=== PATIENT | female | born 1955 | race Caucasian/White ===

== ENCOUNTER 2021-10-11 00:46 | Observation (INO) | payer MEDICARE ==
[~2021-10-11] VITALS: Ht 167.6 cm; Wt 5.7 kg
[2021-10-11 01:03] LABS: BASOPHILS % (AUTO) 0.6 % (0.0-5.0); EOSINOPHILS % (AUTO) 2.2 % (0.0-8.0); HEMATOCRIT 45.6 % (36-48); LYMPHOCYTES % (AUTO) 25.7 % (21.0-51.0); MEAN CORPUSCULAR HGB CONC 33.3 g/dL (32.0-36.0); MEAN CORPUSCULAR VOLUME 86.9 fL (79-99); MONOCYTES % (AUTO) 8.9 % (3.0-13.0); PLATELET COUNT (AUTO) 317 K/uL (130-400); RED BLOOD CELL COUNT(AUTO) 5.25 MIL/uL (4.00-5.50); RED CELL DISTRIBUTION WIDTH 13.5 % (11.0-15.5); WHITE BLOOD COUNT (AUTO) 11.9 K/uL (4.8-10.8)
[2021-10-11 01:12] LABS: POTASSIUM 3.8 mmol/L (3.5-5.1)
[2021-10-11 01:22] LABS: ALBUMIN 3.6 g/dL (3.5-5.0); BILIRUBIN,TOTAL 0.3 mg/dL (0.2-1.0); TOTAL PROTEIN, SERUM 7.7 g/dL (6.0-8.3)
[2021-10-11] MEDS ORDERED: ASPIRIN 325MG TAB PO ONE (02:00)
[2021-10-11] MEDS ORDERED: FAMOTIDINE 20MG VIAL IV ONE (02:00)
[2021-10-11 02:30] LABS: PROTHROMBIN TIME 10.9 SEC (9.6-11.6)
[2021-10-11] MEDS ORDERED: IOHEXOL 350 MG/ML 100ML INFUS..BTL IV ONE (02:39)
[2021-10-11] MEDS ORDERED: NITROGLYCERIN 0.4 MG SL TAB SL PRN (03:00)
[2021-10-11] MEDS ORDERED: ACETAMINOPHEN 325 MG TAB PO PRN (03:00)
[2021-10-11 08:00] VITALS: BP 143/85
[2021-10-11] MEDS ORDERED: FAMOTIDINE 20MG TAB PO SCH (09:00)
[2021-10-11] MEDS ORDERED: ASPIRIN 81MG CHEW TAB PO SCH (09:00)
[2021-10-11] MEDS ORDERED: ENOXAPARIN SODIUM 40 MG/0.4 ML SYRINGE SQ SCH (09:00)
[2021-10-11] MEDS ORDERED: PANT40TA54 PO (10:43)
== END 2021-10-11 16:30 | disposition home or self-care (01) ==
LOC: EDH 00:46 → EDHIP 02:55 → 3AH 05:27
PROVIDERS: ADMIT Internal Medicine; ATTEND Internal Medicine
DX: R07.89 Other chest pain (principal); M54.9 Dorsalgia, unspecified; E89.0 Postprocedural hypothyroidism; G25.0 Essential tremor; J98.11 Atelectasis
CPT/HCPCS: 36415; 71045; 71275; 80053; 82550; 83690; 83874; 84484 ×2; 85025; 85378; 85610; 93005; 96372; 99285; G0378 ×13; Q9967; J1650

== ENCOUNTER 2025-10-25 14:48 | Emergency (ER) | payer MEDICARE ==
[~2025-10-25] VITALS: Ht 167.6 cm; Wt 86.2 kg
[~2025-10-25 14:48] MED LIST: LACT10SO85 PO; PANT40TA54 PO
--- NOTE | 2025-10-25 15:17 | ERN ---
ED Note History of Present Illness Stated Complaint: ANKLE INJURY Chief Complaint: Ankle Problem Time Seen by MD: 14:55 Dictation: PATIENT IS A 70-YEAR-OLD FEMALE HERE WITH HER WITH COMPLAINTS OF LEFT ANKLE AND FOOT PAIN ONSET 11 O'CLOCK THIS MORNING. SHE STATES SHE WAS IN THE SHOWER SHE SLIPPED AND HER FOOT WENT BACKWARDS AND TWISTED. SHE SAID SHE FELT A POP IN THE ANKLE. HIS UNABLE TO AMBULATE SINCE. NEUROVASCULAR CMS INTACT TO THE LEFT FOOT. SHE ALSO STATES SHE HAS TAKEN NOTHING PRIOR TO ARRIVAL FOR PAIN STATES HER PAIN IS 8/10 SECOND SHE IS COMPLAINING OF LEFT 5TH TOE PAIN AFTER DROPPING AN OBJECT ON IT LAST WEEK. SHE DID NOT GET TO SEE HER PRIMARY CARE DOCTOR. Allergies: Coded Allergies: azithromycin (Unverified Allergy, Unknown, 01/07/19) levofloxacin (Unverified Allergy, Unknown, 01/07/19) nitrofurantoin (Unverified Allergy, Unknown, 02/24/25) propranolol (Unverified Allergy, Unknown, 02/24/25) Home Meds Active Scripts Lactulose (Lactulose) 10 Gram/15 Ml Solution, 30 ML PO BID for constipation, #500 ML 0 Refills Prov:KEHINDE ESPINOZA MD 02/24/25 Pantoprazole Sodium (Pantoprazole Sodium) 40 Mg Tablet.dr, 40 MG PO DAILY for 60 Days, #60 TAB 0 Refills Prov:RIVERA STREET Jr., MD 10/11/21 Past Medical History Past Medical History: No Pertinent History, Kidney Stone Surgical History: Hysterectomy Surgical History Other: Thyroid nodule removed Family History: Negative Social History: Negative, Lives with family History: Not Applicable RN Note Reviewed/Agreed w/PFSH: Yes Review of System Dictation CONSTITUTIONAL: NEGATIVE EXCEPT FOR HPI HEAD/FACE: NEGATIVE EXCEPT FOR HPI EENT: NEGATIVE EXCEPT FOR HPI RESPIRATORY: NEGATIVE EXCEPT FOR HPI GASTROINTESTINAL/ABDOMINAL: NEGATIVE EXCEPT FOR HPI GENITOURINARY: NEGATIVE EXCEPT FOR HPI MUSCULOSKELETAL: NEGATIVE EXCEPT FOR HPI LEFT ANKLE/5TH TOE PAIN INTEGUMENTARY: NEGATIVE EXCEPT FOR HPI NEUROLOGICAL/PSYCH: NEGATIVE EXCEPT FOR HPI HEMATOLOGIC/LYMPHATIC: NEGATIVE EXCEPT FOR HPI ALL SYSTEMS NEGATIVE, EXCEPT NOTED ABOVE. 13 POINT REVIEW OF SYSTEMS ASSESSED AND ALL NEGATIVE EXCEPT FOR ABOVE. Initial Vital Sign VS Vital Signs Date Time Temp Pulse Resp B/P (MAP) Pulse Ox O2 Delivery O2 Flow Rate FiO2 10/25/25 14:49 97.9 93 16 122/85 98 Room Air 10/25/25 16:17 0 21 Physical Exam Dictation VITAL SIGNS REVIEWED GENERAL APPEARANCE: ALERT, ORIENTED X 3, MODERATE ACUTE DISTRESS, WELL DEVELOPED, NOURISHED. HEAD AND FACE: NON-TRAUMATIC. EYES: PERRL, PINK CONJUNCTIVAS, EYELID NO TRAUMA, ANTERIOR CHAMBER WITH ARCUS SENILIS. EARS: PINNAS INTACT AND NO SIGNS OF TRAUMA OR ERYTHEMA EAR CANALS CLEAR AND NO DISCHARGE TM NO ERYTHEMA NOSE: NO DISCHARGE, NO BLEEDING. OROPHARYNX: MOUTH NORMAL, TONGUE PINK, PHARYNX CLEAR,NO ERYTHEMA, TONSILS NO EXUDATES, NO ABSCESSES NOTED, MUCOUS MEMBRANE MOIST NECK: SUPPLE, NON-TENDER, NO THYROMEGALY, NO MASSES, NO JVD, NO BRUITS BREAST:DEFERRED CHEST:NO TENDERNESS, NO CREPITUS, NO PARADOXICAL MOVEMENT, NO RETRACTIONS LUNGS:CLEAR, WELL-VENTILATED, SYMMETRIC, NO RALES, NO WHEEZING, NO RHONCHI, NO STRIDOR, GOOD BREATH SOUNDS BILATERALLY HEART: REGULAR RATE, REGULAR RHYTHM, NO MURMUR, NO GALLOPS VASCULAR: NO PERIPHERAL EDEMA, ABDOMEN: SOFT, POSITIVE BOWEL SOUNDS, NONDISTENDED, NO GUARDING, NONTENDER, NO REBOUND, NO MASSES NO HEPATOMEGALY, NO SPLENOMEGALY, NO GRIMM'S SIGN, NO HERNIAS. RECTAL: DEFERRED GENITAL: DEFERRED NEUROLOGICAL: NORMAL SPEECH, MOTOR FUNCTION INTACT, SENSORY FUNCTION INTACT MUSCULOSKELETAL: NECK NONTENDER, FULL RANGE OF MOTION, BACK NONTENDER, FULL RANGE OF MOTION, EXTREMITIES: LEFT BIMALLEOLAR TENDERNESS SWELLING. NO ECCHYMOSIS DISTAL NEUROVASCULAR CMS INTACT. PAIN TENDERNESS TO THE BASE OF THE LEFT 5TH TOE. SKIN: COLOR PINK, DRY, NO TURGOR, NO RASH, NO LACERATIONS, NO ABRASIONS, NO CONTUSIONS. LYMPHATIC: DEFERRED Results (Laboratory/Radiology) Laboratory/Radiology CR left ankle, 3 View. CLINICAL HISTORY: DIFFUSE LEFT MALLEOLAR PAIN SWELLING AFTER TWISTING ANKLE THIS MORE COMPARISON: None provided. FINDINGS: BONES: Hairline distal fibular fracture is noted JOINTS: The joint spaces appear abnormal with widening of the mortise anteriorly. No dislocation. No radiographic evidence of a joint effusion. SOFT TISSUES: The soft tissues are swollen laterally IMPRESSION: Fracture of the distal fibula /[employer]: Foot exam 3 views. History: patient complains of foot pain Comparison :No prior. Findings: Anatomic alignment is maintained. There is no acute fracture or dislocation. The soft tissues are unremarkable. There are no erosive changes seen. A bony protuberance consistent with a calcaneal spur is noted along the inferior calcaneal surface. The bones of the hindfoot are intact. The midfoot is intact. The forefoot structures are normal. Impression: 1.Calcaneal spur. Consider MRI of the foot to exclude plantar fasciitis. 2. No acute bony changes of the foot is seen. /[place] Labs Reviewed?: Yes ED Course ED Course Orders Procedure Category Date Status Time Ankle Comp 3vws Lt RAD 10/25/25 Resulted 15:12 Foot Comp 3+Vws Lt RAD 10/25/25 Resulted 15:12 Acetaminophen With PHA 10/25/25 Complete Codeine (Tylenol-Code 15:30 Current Medications Medications (Trade) Dose Ordered Sig/Abbie Route PRN Reason Start Time Stop Time Status Last Admin Dose Admin Acetaminophen/ Codeine Phosphate (TYLenol-coDEINE TAB) 2 tab ONCE ONCE PO 10/25/25 15:30 10/25/25 15:31 DC Vital Signs Date Time Temp Pulse Resp B/P (MAP) Pulse Ox O2 Delivery O2 Flow Rate FiO2 10/25/25 16:17 97.9 93 16 122/85 98 Room Air* 0 21 10/25/25 14:49 97.9 93 16 122/85 98 Room Air 1700/PATIENT HAS A DISTAL LEFT FIBULA FRACTURE. POSTERIOR ANKLE SPLINT PLACED BY [facility] WITH NEUROVASCULAR CMS INTACT POST PLACEMENT Medical Decision Making MDM MEDICAL DECISION-MAKING BASED ON HPI AND X-RAYS OF LEFT FOOT AND LEFT ANKLE. LEFT FOOT X-RAY NEGATIVE LEFT ANKLE DEMONSTRATES A DISTAL LEFT FIBULAR FRACTURE NONDISPLACED PATIENT WAS SPLINTED WITH CRUTCHES PROVIDED PAIN WE WILL BE MANAGED WITH TYLENOL WITH CODEINE REFERRED TO DR. RIVERA HARRISON FOR FOLLOW UP OUTPATIENT DX & DISP Disposition: Discharge Departure Impression: Primary Impression: Fracture of distal end of left fibula Additional Impressions: Contusion of left foot, initial encounter, Fall Condition: Stable Assign Patient to: Follow-up with primary care provider in 1 to 2 days. Take medications as directed here in the emergency room. Okay to continue home medications unless otherwise discussed during your visit in the emergency room today. Return to your nearest emergency room if symptoms worsen or if there is no improvement. Call 911 if you need immediate assistance. Take Tylenol or Motrin [id number] as needed and if no contraindications are present. Increase oral hydration. A wound culture or urine culture was ordered here in the emergency room department please follow-up with primary care provider and advise them to get repeat ports from our facility. If you had any Demetris wrap/splints that were applied here, please do not remove them until you see your primary care or specialty. Splint/crutches/no weight-bearing until cleared with the orthopedic surgery, call for an appointment. Cool compresses to pain three to 4 times a day. Keep left leg elevated as much as possible Take Tylenol with codeine for severe pain Scripts Acetaminophen with Codeine (Acetaminophen-Cod #3 Tablet) 300 Mg-30 Mg Tablet 1 TAB PO Q4H PRN for MODERATE TO SEVERE PAIN, #15 TAB 0 Refills Prov: RICHARD CALABRESE 10/25/25 Referrals: GREGORY DEMPSEY (PCP) RIVERA HARRISON MD Time of Disposition: 17:02 I have reviewed the case, and I agree with, Diagnosis and Plan RICHARD CALABRESE Oct 25, 2025 15:17
[2025-10-25 16:17] VITALS: BP 122/85; PULSE 93; RESP 16; TEMP 97.9; O2SAT 98
--- NOTE | 2025-10-25 16:34 | HMCIMG ---
EXAM: CR left ankle, 3 View. CLINICAL HISTORY: DIFFUSE LEFT MALLEOLAR PAIN SWELLING AFTER TWISTING ANKLE THIS MORE COMPARISON: None provided. FINDINGS: BONES: Hairline distal fibular fracture is noted JOINTS: The joint spaces appear abnormal with widening of the mortise anteriorly. No dislocation. No radiographic evidence of a joint effusion. SOFT TISSUES: The soft tissues are swollen laterally IMPRESSION: Fracture of the distal fibula /[place]
--- NOTE | 2025-10-25 16:34 | HMCIMG ---
Technique: Foot exam 3 views. History: patient complains of foot pain Comparison :No prior. Findings: Anatomic alignment is maintained. There is no acute fracture or dislocation. The soft tissues are unremarkable. There are no erosive changes seen. A bony protuberance consistent with a calcaneal spur is noted along the inferior calcaneal surface. The bones of the hindfoot are intact. The midfoot is intact. The forefoot structures are normal. Impression: 1.Calcaneal spur. Consider MRI of the foot to exclude plantar fasciitis. 2. No acute bony changes of the foot is seen. /[place]
[2025-10-25] MEDS ORDERED: ACET-2079 PO (17:03)
--- NOTE | 2025-10-25 17:58 | NUR ---
PT LT ANKLE SPLINTED AND CRUTCHES GIVEN TO PT , PT TOLERATED WELL
== END 2025-10-25 18:08 | disposition home or self-care (01) ==
LOC: EDH 14:48
DX: S82.832A Other fracture of upper and lower end of left fibula, initial encounter for closed fracture (principal); S90.32XA Contusion of left foot, initial encounter; Z88.1 Allergy status to other antibiotic agents; Z79.899 Other long term (current) drug therapy; Z90.710 Acquired absence of both cervix and uterus; W18.2XXA Fall in (into) shower or empty bathtub, initial encounter; Y93.89 Activity, other specified; Y92.091 Bathroom in other non-institutional residence as the place of occurrence of the external cause; Y99.8 Other external cause status
CPT/HCPCS: 29515; 73610; 73630; 99284